=== PATIENT | female | born 1960 | race African-American/Black ===

== ENCOUNTER 2025-04-15 10:29 | Emergency (ER) | payer OTHER ==
[2025-04-15 10:37] VITALS: BP 137/85; PULSE 95; RESP 20; TEMP 98.2; BMI 37.7
[2025-04-15 12:00] LABS: HEMATOCRIT 42.5 % (34.1-44.9); HEMOGLOBIN 13.1 g/dL (11.2-15.7); MCHC 30.8 g/dl (32.2-35.5); MEAN CELL VOLUME 82.7 fl (79.4-94.8); MEAN PLT VOLUME 9.8 fl (9.4-12.3); PLATELET COUNT 179 x10^3/uL (182-369); RDW 14.1 % (12.4-16.4)
[2025-04-15 12:21] LABS: POTASSIUM 3.8 mmol/L (3.5-5.1)
[2025-04-15 12:23] LABS: CALCIUM 9.3 mg/dL (8.5-10.1)
[2025-04-15 12:24] LABS: ALBUMIN 3.4 g/dl (3.4-5.0); BLOOD UREA NITROGEN 10.6 mg/dL (7-18); MAGNESIUM 1.9 mg/dL (1.8-2.4)
[2025-04-15 12:26] LABS: CREATININE 0.9 mg/dL (0.55-1.3)
[2025-04-15 12:28] LABS: TOT PROT 6.8 g/dl (6.4-8.2)
[2025-04-15 12:30] LABS: BILIRUBIN,TOTAL 0.4 mg/dL (0.2-1)
[2025-04-15] MEDS ORDERED: ACETAMINOPHEN INJECTION 100 ML ONE (13:49)
[2025-04-15] MEDS: ACETAMINOPHEN 1000 MG/100 ML BAG IVPB ONE (14:01)
[2025-04-15] MEDS: LACTATED RINGERS SOLUTION 1000 ML INFUS.BAG IV ONE (14:01)
[2025-04-15 15:00] LABS: HIV INTERPRETATION NEGATIVE (NEGATIVE)
[2025-04-15 15:01] LABS: HCV DIAGNOSTIC IN-HOUSE W/RFLX NON-REACTIVE (NONREACTIVE)
== END 2025-04-15 17:10 | disposition home or self-care (01) ==
LOC: JER 10:29
PROC: 3E033NZ Introduction of Analgesics, Hypnotics, Sedatives into Peripheral Vein, Percutaneous Approach (ICD-10-PCS; principal; 2025-04-15)
DX: R19.7 Diarrhea, unspecified (principal); R10.84 Generalized abdominal pain; R53.1 Weakness
CPT/HCPCS: 36415; 74177-TC; 80053; 82272; 83690; 83735; 84484; 85025; 86803; 87389; 93005; 93010; 99285-25; Q9967